=== PATIENT | male | born 1975 | race Caucasian/White ===

== ENCOUNTER → 2018-11-04 | Outpatient (CLI) | payer OTHER ==
[2018-11-04 16:29] LABS: Bacteria Mod /hpf; Squamous Epithelial Cells Few /hpf (Few)
[2018-11-04 16:30] LABS: Amorphous Mod (0-Heavy); Mucus Light (0-Heavy)
[2018-11-04 16:54] LABS: Protein, Urine Random 1613.4 mg/dL (0.0-11.9)
== END | disposition home or self-care (01) ==
LOC: LAB SHORT 16:13 → LAB 16:13
PROVIDERS: Internal Medicine
DX: N17.9 Acute kidney failure, unspecified (principal); R80.9 Proteinuria, unspecified
CPT/HCPCS: 81015; 82570; 84156

== ENCOUNTER → 2018-11-05 | Outpatient (CLI) | payer OTHER ==
[2018-11-05 19:47] LABS: Creatinine Urine 39.8 mg/dL (27.00-270.00)
[2018-11-05 19:56] LABS: Protein, Urine Quantitative 543.9 mg/dL (0.0-11.9)
== END | disposition home or self-care (01) ==
LOC: LAB SHORT 16:30 → LAB 16:30
PROVIDERS: Internal Medicine
DX: N17.9 Acute kidney failure, unspecified (principal); R80.9 Proteinuria, unspecified
CPT/HCPCS: 81050; 82570; 84156

== ENCOUNTER 2018-11-24 09:18 | Day surgery (SDC) | payer OTHER ==
--- NOTE | 2018-11-24 12:42 | NUR ---
PT DISCHARGED FROM IMAGING WITH OUT DIFFICULTY. REMAINED HYPERTENSIVE, BUT PT WILL TAKE HOME BP MEDS
== END 2018-11-24 22:36 | disposition home or self-care (01) ==
LOC: CT 09:18
DX: N04.9 Nephrotic syndrome with unspecified morphologic changes (principal); E78.5 Hyperlipidemia, unspecified; K21.9 Gastro-esophageal reflux disease without esophagitis; F17.210 Nicotine dependence, cigarettes, uncomplicated; E11.22 Type 2 diabetes mellitus with diabetic chronic kidney disease; N18.3 Chronic kidney disease, stage 3 (moderate)
CPT/HCPCS: 50200; 77012; 88329

== ENCOUNTER 2019-05-11 06:40 | Day surgery (SDC) | payer OTHER ==
[~2019-05-11] VITALS: Ht 175.3 cm; Wt 125.0 kg
[2019-05-11] MEDS ORDERED: AMLO10 PO (07:00)
[2019-05-11] MEDS ORDERED: LEVSOD137 PO (07:01)
[2019-05-11] MEDS ORDERED: GLIP5 PO (07:01)
[2019-05-11] MEDS ORDERED: ATOR20 PO (07:02)
[2019-05-11] MEDS ORDERED: TORSE20 PO (07:02)
[2019-05-11] MEDS ORDERED: LISI20 PO (07:02)
[2019-05-11] MEDS ORDERED: METO5 PO (07:03)
[2019-05-11] MEDS ORDERED: OMEP20ER PO (07:03)
--- NOTE | 2019-05-11 10:06 | NUR ---
SUTURE REMOVED FROM PERMACATH SITE NEAR NECKLINE INSTRUCTED BY DR. LAWS. STERI-STRIPS APPLIED OVER SITE AFTER SUTURE REMOVED, NO ACTIVE BLEEDING, OOZING, OR PAIN PER PT. PT ABLE TO GET DRESSED BY HIMSELF. IV REMOVED FROM LEFT HAND, CATH INTACT, PRESSURE DRESSING APPLIED. VSS. PT INSTRUCTED TO [facility] PER DR. LASW. [facility] AND FUTURE CARE, NADN AT TIME OF DISCHARGE. TAKEN OUT TO PRIVATE VEHICLE VIA W/C.
== END 2019-05-11 09:50 | disposition home or self-care (01) ==
LOC: MHTC 06:40
DX: I12.0 Hypertensive chronic kidney disease with stage 5 chronic kidney disease or end stage renal disease (principal); E11.22 Type 2 diabetes mellitus with diabetic chronic kidney disease; N18.6 End stage renal disease; K21.9 Gastro-esophageal reflux disease without esophagitis; E78.5 Hyperlipidemia, unspecified; E55.9 Vitamin D deficiency, unspecified; F17.210 Nicotine dependence, cigarettes, uncomplicated; Z79.899 Other long term (current) drug therapy; Z79.84 Long term (current) use of oral hypoglycemic drugs
CPT/HCPCS: 36558; 76937; 99152; 99153; C1750; C1769; J1644; J2250; J2405; J3010; J7030

== ENCOUNTER → 2019-11-16 | Outpatient (CLI) | payer OTHER ==
[~2019-11-16] MED LIST: AMLO10 PO; ATOR20 PO; GLIP5 PO; LEVSOD137 PO; LISI20 PO; METO5 PO; OMEP20ER PO; TORSE20 PO
[2019-11-16 15:46] LABS: Source, Urine Clean Catch
[2019-11-16 17:04] LABS: Bilirubin, Urine Neg (Neg); Blood, Urine 2+ (Neg); Glucose Qualitative, Urine 2+ (Neg); Ketones, Urine Neg (Neg); Leukocyte Esterase, Urine Neg (Neg); Nitrite, Urine Neg (Neg); Protein, Urine 4+ (Neg); Urobilinogen, Urine NORM (Normal)
[2019-11-16 17:24] LABS: Appearance, Urine Clear (Clear); Color, Urine Yellow (P-Yellow)
[2019-11-16 17:25] LABS: Bacteria Few /hpf; Squamous Epithelial Cells Rare /hpf (Few); Transitional Epithelial Cells Rare /hpf (0-Rare)
== END | disposition home or self-care (01) ==
LOC: LAB SHORT 15:44 → OLS 15:44
PROVIDERS: Internal Medicine
DX: R35.0 Frequency of micturition (principal)
CPT/HCPCS: 81001

== ENCOUNTER 2020-08-15 11:04 | Emergency (ER) | payer OTHER ==
[~2020-08-15] VITALS: Ht 177.8 cm; Wt 81.7 kg
[2020-08-15 11:52] LABS: BASOPHILS ABSOLUTE AUTO 0.05 K/mm3 (0.00-0.23); BASOPHILS PERCENT AUTO 1 % (0-2); EOSINOPHILS ABSOLUTE AUTO 0.22 K/mm3 (0.00-0.68); EOSINOPHILS PERCENT AUTO 3 % (0-6); Hematocrit 36.1 % (37.0-53.0); Hemoglobin 11.5 g/dL (13.5-17.5); IMMATURE GRAN ABSOLUTE AUTO 0.02 K/mm3 (0.00-0.10); IMMATURE GRAN PERCENT AUTO 0 % (0-1); LYMPHOCYTES ABSOLUTE AUTO 1.19 K/mm3 (0.84-5.20); LYMPHOCYTES PERCENT AUTO 14 % (21-46); MONOCYTES ABSOLUTE AUTO 0.64 K/mm3 (0.16-1.47); MONOCYTES PERCENT AUTO 8 % (4-13); Mean Corpuscular HGB 31.5 pg (26.0-34.0); Mean Corpuscular HGB Conc 31.9 g/dL (31.5-36.5); Mean Corpuscular Volume 99 fL (80-100); Mean Platelet Volume 9.9 fL (9.1-12.4); NEUTROPHILS ABSOLUTE AUTO 6.32 K/mm3 (1.96-9.15); NEUTROPHILS PERCENT AUTO 75 % (41-73); Platelet Count 256 K/mm3 (150-400); RDW Standard Deviation 54.5 fL (35.1-46.3); Red Blood Cell Count 3.65 M/mm3 (4.30-5.90); White Blood Cell Count 8.44 K/mm3 (4.00-11.30)
[2020-08-15 12:21] LABS: Magnesium, Blood 3.1 mg/dL (1.6-2.4)
[2020-08-15 12:28] LABS: Alanine Aminotransfer (ALT/SGP 19 U/L (12-78); Albumin, Blood 3.3 g/dL (3.4-5.0); Alk Phos 92 U/L (50-136); Anion Gap 12 mmol/L (6-16); Aspartate Aminotrans (AST/SGOT <3 U/L (12-37); Bilirubin, Total 0.3 mg/dL (0.1-1.0); Blood Urea Nitrogen 79 mg/dL (8-24); Bun/Creatinine Ratio 6.4 (12.0-20.0); CO2, Blood 24 mmol/L (21-32); Calcium, Blood 8.8 mg/dL (8.5-10.1); Chloride, Blood 97 mmol/L (98-108); Globulin, Blood 3.3 g/dL (2.2-4.0); Glomerular Filtration Rate 5 (60-); Glucose, Blood 125 mg/dL (70-99); Potassium, Blood 6.1 mmol/L (3.5-5.5); Sodium, Blood 133 mmol/L (136-145); Total Protein, Blood 6.6 g/dL (6.4-8.2)
[2020-08-15] MEDS ORDERED: HYDRA25 PO (12:29)
[2020-08-15] MEDS ORDERED: ASPI81CH PO (12:29)
[2020-08-15] MEDS ORDERED: FURO40 PO (12:30)
[2020-08-15] MEDS ORDERED: QUET100 PO (12:30)
[2020-08-15] MEDS ORDERED: SEVEC800 PO (12:31)
== END 2020-08-15 12:55 | disposition home or self-care (01) ==
LOC: ER 11:04
PROVIDERS: Emergency Medicine
DX: I95.9 Hypotension, unspecified (principal); E87.5 Hyperkalemia; I10 Essential (primary) hypertension; E03.9 Hypothyroidism, unspecified; K21.9 Gastro-esophageal reflux disease without esophagitis; Z79.899 Other long term (current) drug therapy
CPT/HCPCS: 36415; 51798; 80053; 83735; 85025; 99285-25

== ENCOUNTER 2020-11-17 14:14 | Emergency (ER) | payer OTHER ==
[~2020-11-17] VITALS: Ht 175.3 cm; Wt 81.7 kg
[~2020-11-17 14:14] MED LIST changes: -AMLO10 PO; -ATOR20 PO; -LEVSOD137 PO; -LISI20 PO
[2020-11-17 14:54] LABS: BASOPHILS ABSOLUTE AUTO 0.03 K/mm3 (0.00-0.23); BASOPHILS PERCENT AUTO 0 % (0-2); EOSINOPHILS ABSOLUTE AUTO 0.17 K/mm3 (0.00-0.68); EOSINOPHILS PERCENT AUTO 2 % (0-6); Hematocrit 32.8 % (37.0-53.0); Hemoglobin 10.8 g/dL (13.5-17.5); IMMATURE GRAN ABSOLUTE AUTO 0.03 K/mm3 (0.00-0.10); IMMATURE GRAN PERCENT AUTO 0 % (0-1); LYMPHOCYTES ABSOLUTE AUTO 1.66 K/mm3 (0.84-5.20); LYMPHOCYTES PERCENT AUTO 17 % (21-46); MONOCYTES ABSOLUTE AUTO 0.85 K/mm3 (0.16-1.47); MONOCYTES PERCENT AUTO 9 % (4-13); Mean Corpuscular HGB 33.5 pg (26.0-34.0); Mean Corpuscular HGB Conc 32.9 g/dL (31.5-36.5); Mean Corpuscular Volume 102 fL (80-100); Mean Platelet Volume 9.3 fL (9.1-12.4); NEUTROPHILS ABSOLUTE AUTO 7.23 K/mm3 (1.96-9.15); NEUTROPHILS PERCENT AUTO 73 % (41-73); Platelet Count 257 K/mm3 (150-400); RDW Coefficient Variation 14.5 % (11.7-14.2); RDW Standard Deviation 53.4 fL (35.1-46.3); Red Blood Cell Count 3.22 M/mm3 (4.30-5.90); White Blood Cell Count 9.97 K/mm3 (4.00-11.30)
[2020-11-17 15:26] LABS: Albumin, Blood 3.2 g/dL (3.4-5.0); Albumin/Globulin Ratio 0.8 (0.8-1.8); Bilirubin, Total 0.3 mg/dL (0.1-1.0); Bun/Creatinine Ratio 4.7 (12.0-20.0); Calcium, Blood 8.7 mg/dL (8.5-10.1); Creatinine, Blood 9.11 mg/dL (0.60-1.20); Globulin, Blood 3.9 g/dL (2.2-4.0); Potassium, Blood 5.5 mmol/L (3.5-5.5); Total Protein, Blood 7.1 g/dL (6.4-8.2)
[2020-11-17 15:31] LABS: Prothrombin Time Results 10.8 Sec (9.7-11.5)
[2020-11-18 01:24] LABS: SARS-Cov-2 (COVID-19) PCR, MMC NEGATIVE (NEGATIVE)
== END 2020-11-18 00:30 | disposition home or self-care (01) ==
LOC: ER 14:14
PROVIDERS: Emergency Medicine; Physician Assistant; Student in an Organized Health Care Education/Training Program
DX: T82.43XA Leakage of vascular dialysis catheter, initial encounter (principal); I10 Essential (primary) hypertension; E78.5 Hyperlipidemia, unspecified; E03.9 Hypothyroidism, unspecified; K21.9 Gastro-esophageal reflux disease without esophagitis; F17.210 Nicotine dependence, cigarettes, uncomplicated; Z20.822 Contact with and (suspected) exposure to COVID-19; Z79.899 Other long term (current) drug therapy; Z79.82 Long term (current) use of aspirin
CPT/HCPCS: 36415; 80053; 85025; 85610; 85730; 93005; 93010; 99284-25; A9270; J1642; U0004

== ENCOUNTER 2020-11-20 16:00 | Observation (INO) | payer OTHER ==
[~2020-11-20] VITALS: Ht 175.3 cm; Wt 83.9 kg
[2020-11-20 16:43] LABS: BASOPHILS ABSOLUTE AUTO 0.06 K/mm3 (0.00-0.23); BASOPHILS PERCENT AUTO 1 % (0-2); EOSINOPHILS ABSOLUTE AUTO 0.23 K/mm3 (0.00-0.68); EOSINOPHILS PERCENT AUTO 3 % (0-6); Hematocrit 31.3 % (37.0-53.0); Hemoglobin 10.4 g/dL (13.5-17.5); IMMATURE GRAN ABSOLUTE AUTO 0.03 K/mm3 (0.00-0.10); IMMATURE GRAN PERCENT AUTO 0 % (0-1); LYMPHOCYTES ABSOLUTE AUTO 1.38 K/mm3 (0.84-5.20); LYMPHOCYTES PERCENT AUTO 18 % (21-46); MONOCYTES ABSOLUTE AUTO 0.47 K/mm3 (0.16-1.47); MONOCYTES PERCENT AUTO 6 % (4-13); Mean Corpuscular HGB 33.1 pg (26.0-34.0); Mean Corpuscular HGB Conc 33.2 g/dL (31.5-36.5); Mean Corpuscular Volume 100 fL (80-100); Mean Platelet Volume 9.4 fL (9.1-12.4); NEUTROPHILS ABSOLUTE AUTO 5.72 K/mm3 (1.96-9.15); NEUTROPHILS PERCENT AUTO 72 % (41-73); Platelet Count 236 K/mm3 (150-400); RDW Standard Deviation 51.1 fL (35.1-46.3); Red Blood Cell Count 3.14 M/mm3 (4.30-5.90); White Blood Cell Count 7.89 K/mm3 (4.00-11.30)
[2020-11-20 17:14] LABS: Albumin, Blood 3.1 g/dL (3.4-5.0); Albumin/Globulin Ratio 0.8 (0.8-1.8); Bilirubin, Total 0.4 mg/dL (0.1-1.0); Bun/Creatinine Ratio 4.9 (12.0-20.0); Calcium, Blood 8.1 mg/dL (8.5-10.1); Creatinine, Blood 15.9 mg/dL (0.60-1.20); Globulin, Blood 3.7 g/dL (2.2-4.0); Potassium, Blood 6.4 mmol/L (3.5-5.5); Total Protein, Blood 6.8 g/dL (6.4-8.2)
[2020-11-20 17:51] LABS: Prothrombin Time Results 11.5 Sec (9.7-11.5)
[2020-11-20] MEDS ORDERED: AMLO10 PO ×2 (18:18)
[2020-11-20] MEDS ORDERED: EUTHYROX125 MCG PO ×2 (18:19)
[2020-11-20] MEDS ORDERED: ATOR20 PO ×2 (18:19)
[2020-11-20] MEDS ORDERED: LISI20 PO ×2 (18:19)
[2020-11-20] MEDS ORDERED: Aspir 8181 MG PO ×2 (18:20)
[2020-11-20] MEDS ORDERED: HYDRA25 PO ×2 (18:20)
[2020-11-20] MEDS ORDERED: QUET100 PO ×2 (18:21)
[2020-11-20] MEDS ORDERED: FURO40 PO ×2 (18:21)
[2020-11-20] MEDS ORDERED: SEVEC800 PO ×2 (18:22)
[2020-11-20] MEDS ORDERED: SEVE800 PO ×2 (18:27)
[2020-11-20] MEDS ORDERED: QUETIAPINE FUMA50 M2 PO ×2 (18:28)
[2020-11-20] MEDS ORDERED: Calcium Carbon500 MG PO ×2 (18:28)
[2020-11-20] MEDS ORDERED: METO100ER PO ×2 (18:29)
[2020-11-20] MEDS ORDERED: RENAL VITAMIN0.8 MG PO ×2 (18:30)
[2020-11-20] MEDS ORDERED: Hair, Skin & N1 EACH PO ×2 (18:31)
--- NOTE | 2020-11-21 03:08 | NUR ---
DIALYSIS WHILE DOING A DIALYSIS TX ON PT TO DECREASE HIS K+, THE R/O MACHINE SHUT DOWN. IT HAPPENED 4 CONSECUTVELY. MAKING THE FRESENIUS ALARM "NO WATER". RETURNED BLOOD. HAS BASIC METABOLIC PANEL ORDERED THIS AM.
--- NOTE | 2020-11-21 05:12 | NUR ---
2300: Pt call nurse in room reporting his femostop came off as pt was turning. This nurse asses and the cath site is nolonger bleeding. Charge nurse notified. Dressed site with 4x4s and stayed with pt for 15 minutes, no bleeding observed. Femostop left off and educated pt to notify nurse of any signs of bleeing. 0400: Pt got dialysis tonight. Pt is resting well at this time. No signs of bleeding. Pt A&Ox4. Pt conversing with himself. Denies hallucinations. Pt stable at this time. Bed in lowest position. Call light within reach.
[2020-11-21 06:36] LABS: Bun/Creatinine Ratio 4.8 (12.0-20.0); Creatinine, Blood 12.8 mg/dL (0.60-1.20); Potassium, Blood 4.2 mmol/L (3.5-5.5)
[2020-11-21] MEDS ORDERED: ACET325 PO ×2 (09:34)
[2020-11-21] MEDS ORDERED: ONDA4ODT MM ×2 (09:34)
--- NOTE | 2020-11-21 11:11 | NUR ---
PATIENT DISCHARGED TO HOME ACCOMPANIED BY HIS MOTHER. VERBALIZED UNDERSTANDING OF D/C INSTRUCTIONS, BUT SEEMED IN A HURRY TO LEAVE. IV SALINE LOCK REMOVED WITHOUT INCIDENT. OFF UNIT VIA W/C AT 1015. NO PERSONAL BELONGINGS LEFT BEHIND.
== END 2020-11-21 10:08 | disposition home or self-care (01) ==
LOC: ER 16:00 → MEDS 16:01
PROVIDERS: Physician Assistant; ADMIT Internal Medicine
DX: T82.838A Hemorrhage due to vascular prosthetic devices, implants and grafts, initial encounter (principal); E87.5 Hyperkalemia; E78.5 Hyperlipidemia, unspecified; E03.9 Hypothyroidism, unspecified; F17.210 Nicotine dependence, cigarettes, uncomplicated; R79.1 Abnormal coagulation profile; K21.9 Gastro-esophageal reflux disease without esophagitis; I45.10 Unspecified right bundle-branch block; F32.9 Major depressive disorder, single episode, unspecified; I12.0 Hypertensive chronic kidney disease with stage 5 chronic kidney disease or end stage renal disease; N18.6 End stage renal disease; Z99.2 Dependence on renal dialysis; Y84.1 Kidney dialysis as the cause of abnormal reaction of the patient, or of later complication, without mention of misadventure at the time of the procedure
CPT/HCPCS: 36415; 80048; 80053; 82947; 85025; 85610; 85730; 86850; 86900; 86901; 93005; 93010; 99284-25; J1170

== ENCOUNTER 2021-02-07 13:26 | Day surgery (SDC) | payer OTHER ==
[~2021-02-07] VITALS: Ht 175.3 cm; Wt 86.0 kg
[~2021-02-07 13:26] MED LIST changes: +ACET325 PO; +AMLO10 PO; +ATOR20 PO; +Aspir 8181 MG PO; +Calcium Carbon500 MG PO; +EUTHYROX125 MCG PO; +FURO40 PO; +HYDRA25 PO; +Hair, Skin & N1 EACH PO; +LISI20 PO; +METO100ER PO; +METO50ER PO; +ONDA4ODT MM; +QUET100 PO; +QUETIAPINE FUMA50 M2 PO; +RENAL VITAMIN0.8 MG PO; +SEVE800 PO; +SEVEC800 PO
--- NOTE | 2021-02-07 14:22 | NUR ---
PT DENIES CP
--- NOTE | 2021-02-07 16:43 | NUR ---
PT TO RECOVERY ROOM POST PROCEDURE. PT AWAKE AND CONVERSING APPROPRIATELY; DENIES PAIN POST PROCEDURE. MONITOR SR 70'S, B/P 134/86, AFEBRILE, SPO2 90% RA-PLACED ON 2L NC. R CHEST PERMCATH SITE NO SWELLING/HEMATOMA, SLOW OOZE FROM SITE, PRESSURE DRSG APPLIED AND MANUAL PRESSURE BEING HELD.
--- NOTE | 2021-02-07 17:38 | NUR ---
PRESSURE HELD BY MUPTIPLE STAFF ON PATIENT. CALLED DR. LAWS.AFTER PROTAMINE 5 MG IV GIVEN ORDER BY DR. LAWS. ATTEMPED PRESSURE DRESSING, REMOVED, MANUAL PRESSURE APPLIED, DERMABOND AND DANNY APPLIED AND SOAKED THROUGH, RECALLED DR. LAWS. HE IS DUE TO COME TO THE BEDSIDE. MOTHER AT THE BEDSIDE AND UPDATED EVENTS OCCUR.
--- NOTE | 2021-02-07 17:44 | NUR ---
REPORT TO VANDANA VARGAS; ALL QUESTIONS ANSWERED.
--- NOTE | 2021-02-07 18:09 | NUR ---
1800 DR. LAWS AT THE BEDSIDE, STERILE FIELD SET UP, LIDO WITH EPI INJECTED AND EXTRA SUTURE APPLIED TO THE PD INSERTION SITE. BLEEDING CEASED AT THIS POINT. DR. LAWS SPOKE WITH THE MOTHER AFTER THE PROCEDURE AND ALL QUESTIONS ANSWERED. VSS. SITE CLEANED AND DRESSED. MONITORED FOR ANY FURTHER BLEEDING.
--- NOTE | 2021-02-07 18:21 | NUR ---
1820 CATHY SITTING UP IN THE RECLINER EATING HIS DINNER TRAY. O2 OFF ROOM AIR SAT 98%
--- NOTE | 2021-02-07 18:49 | NUR ---
DRESSING CHANGED AND PRESSURE DRESSING APPLIED. PATIENT OFF MONITOR AND DRESSED. PIV REMOVED, CATHETER TIP INTACT ANF PRESSURE DRESSING APPLIED TO THE LEFT AC ALSO. RIGHT ARM PLACED IN A SLING TO REMIND PATIENT NOT LIFT ARM ABOVE HEAD AND KEEP DRESSURE DRESSING INTACT.
--- NOTE | 2021-02-07 19:00 | NUR ---
PATIENT DISCAHRGE HOME VIA WHEELCHAIR WITH MOM DRIVING. MOM WILL STAY WITH PATIENT TONIGHT DUE TO BLEEDIN RISK, HE HAS DIALYSIS TOMORROW AND GOING TO DR. WOODSON OFFICE TO HAVE STITCHES REMOVED FOLLOWING DIALYSIS ON FRIDAY.
[2021-02-08] MEDS ORDERED: ACET500 (15:59)
== END 2021-02-07 19:00 | disposition home or self-care (01) ==
LOC: MHTC 13:26
DX: T82.49XA Other complication of vascular dialysis catheter, initial encounter (principal); I12.0 Hypertensive chronic kidney disease with stage 5 chronic kidney disease or end stage renal disease; N18.6 End stage renal disease; E11.22 Type 2 diabetes mellitus with diabetic chronic kidney disease; Z01.810 Encounter for preprocedural cardiovascular examination; E78.5 Hyperlipidemia, unspecified; K21.9 Gastro-esophageal reflux disease without esophagitis; E03.9 Hypothyroidism, unspecified; Z79.899 Other long term (current) drug therapy
CPT/HCPCS: 99152; 99153; C1725; C1750; C1769; J1644; J2250; J2720; J3010; J7040; Q9967

== ENCOUNTER 2021-02-07 19:29 | Emergency (ER) | payer OTHER ==
[~2021-02-07] VITALS: Ht 175.3 cm; Wt 85.7 kg
[2021-02-08] MEDS ORDERED: ACET500 (15:59)
== END 2021-02-07 22:02 | disposition home or self-care (01) ==
LOC: ER 19:29
DX: T82.838A Hemorrhage due to vascular prosthetic devices, implants and grafts, initial encounter (principal); E78.5 Hyperlipidemia, unspecified; I10 Essential (primary) hypertension; E03.9 Hypothyroidism, unspecified; K21.9 Gastro-esophageal reflux disease without esophagitis; F17.210 Nicotine dependence, cigarettes, uncomplicated; Z79.899 Other long term (current) drug therapy
CPT/HCPCS: 71046; 99284-25

== ENCOUNTER 2021-02-07 23:51 | Emergency (ER) | payer OTHER ==
[~2021-02-07] VITALS: Ht 175.3 cm; Wt 85.7 kg
[2021-02-08 01:09] LABS: BASOPHILS ABSOLUTE AUTO 0.05 K/mm3 (0.00-0.23); BASOPHILS PERCENT AUTO 1 % (0-2); EOSINOPHILS ABSOLUTE AUTO 0.28 K/mm3 (0.00-0.68); EOSINOPHILS PERCENT AUTO 3 % (0-6); Hematocrit 33.1 % (37.0-53.0); Hemoglobin 10.8 g/dL (13.5-17.5); IMMATURE GRAN ABSOLUTE AUTO 0.04 K/mm3 (0.00-0.10); IMMATURE GRAN PERCENT AUTO 0 % (0-1); LYMPHOCYTES ABSOLUTE AUTO 2.28 K/mm3 (0.84-5.20); LYMPHOCYTES PERCENT AUTO 24 % (21-46); MONOCYTES ABSOLUTE AUTO 0.97 K/mm3 (0.16-1.47); MONOCYTES PERCENT AUTO 10 % (4-13); Mean Corpuscular HGB 32.2 pg (26.0-34.0); Mean Corpuscular HGB Conc 32.6 g/dL (31.5-36.5); Mean Corpuscular Volume 99 fL (80-100); Mean Platelet Volume 9.7 fL (9.1-12.4); NEUTROPHILS ABSOLUTE AUTO 5.93 K/mm3 (1.96-9.15); NEUTROPHILS PERCENT AUTO 62 % (41-73); Platelet Count 260 K/mm3 (150-400); RDW Coefficient Variation 14.3 % (11.7-14.2); RDW Standard Deviation 51.4 fL (35.1-46.3); Red Blood Cell Count 3.35 M/mm3 (4.30-5.90); White Blood Cell Count 9.55 K/mm3 (4.00-11.30)
[2021-02-08] MEDS ORDERED: ACET500 (15:59)
== END 2021-02-08 04:06 | disposition home or self-care (01) ==
LOC: ER 23:51
PROVIDERS: Student in an Organized Health Care Education/Training Program
DX: T82.838A Hemorrhage due to vascular prosthetic devices, implants and grafts, initial encounter (principal); E78.5 Hyperlipidemia, unspecified; I10 Essential (primary) hypertension; E03.9 Hypothyroidism, unspecified; K21.9 Gastro-esophageal reflux disease without esophagitis; F17.210 Nicotine dependence, cigarettes, uncomplicated; Z79.899 Other long term (current) drug therapy
CPT/HCPCS: 36415; 85025; 96374; 96375; 99284-25; J2270; J2405

== ENCOUNTER 2021-09-26 10:04 | Day surgery (SDC) | payer OTHER ==
[~2021-09-26] VITALS: Ht 177.8 cm; Wt 84.5 kg
[~2021-09-26 10:04] MED LIST changes: +ACET500; +Fosrenol750 MG PO
[2021-09-26] MEDS ORDERED: RISP1 PO (10:27)
[2021-09-26] MEDS ORDERED: VELTASSA PO (10:31)
--- NOTE | 2021-09-26 12:45 | NUR ---
PT BACK TO RECOVERY ROOM VIA BED AFTER FISTULAGRAM. PEPSI GIVEN PER REQUEST. AWAKE AND ALERT, MOTHER AT BEDSIDE
--- NOTE | 2021-09-26 13:24 | NUR ---
1200 PATIENT RETURNED FROM THE CATHLAB. PLACED ON THE MONITOR. VVS. NO PAIN NOTED. MOTHER AT THE BEDSIDE. PURSE STRING SUTURES NOTED TO THE FISTULA SITE IN THE RIGHT ARM. CALL LIGHT IN REACH.
--- NOTE | 2021-09-26 14:00 | NUR ---
MD AWARE OF INCREASED BP. PT'S MOTHER STATES THIS HAS BEEN ONGOING AND THEY HAVE BEEN WORKING ON MEDICATIONS AND DOSES WITH GALVANIZER ZINC.
--- NOTE | 2021-09-26 14:30 | NUR ---
PURSE STRING SUTURES TO RIGHT FOREARM FISTULA SITES HAVE BEEN REMOVED, NO BLEEDING OR SWELLING NOTED AT EITHER SITE. PT AND MOTHER VERBALIZED UNDERSTANDING OF DC INSTRUCTIONS AND FOLLOW UP INFO. IV DC'D, CATH INTACT. PT OUT TO CAR VIA WHEELCHAIR. WILL HAVE DIALYSIS TOMORROW SCHEDULED.
== END 2021-09-26 14:30 | disposition home or self-care (01) ==
LOC: MHTC 10:04
DX: T82.858A Stenosis of other vascular prosthetic devices, implants and grafts, initial encounter (principal); I12.0 Hypertensive chronic kidney disease with stage 5 chronic kidney disease or end stage renal disease; N18.6 End stage renal disease; E11.22 Type 2 diabetes mellitus with diabetic chronic kidney disease; K21.9 Gastro-esophageal reflux disease without esophagitis; E78.5 Hyperlipidemia, unspecified; E03.9 Hypothyroidism, unspecified; Z79.82 Long term (current) use of aspirin; Z79.899 Other long term (current) drug therapy
CPT/HCPCS: 76937; 99152; 99153; A9270; C1725; C1769; C1887; C1894; J1644; J2250; J3010; J7030; Q9967

== ENCOUNTER 2024-02-07 11:28 | Emergency (ER) | payer OTHER ==
[~2024-02-07] VITALS: Ht 167.6 cm; Wt 72.6 kg
[~2024-02-07 11:28] MED LIST changes: +Hydroxyzine HCl50 MG PO; +RISP1 PO; +VELTASSA PO
[2024-02-07 11:39] VITALS: BP 164/85
== END 2024-02-07 16:56 | disposition home or self-care (01) ==
LOC: ER 11:28
DX: S82.62XA Displaced fracture of lateral malleolus of left fibula, initial encounter for closed fracture (principal); F17.210 Nicotine dependence, cigarettes, uncomplicated; W18.30XA Fall on same level, unspecified, initial encounter
CPT/HCPCS: 29515; 73562-LT; 73610; 73630; 99283-25

== ENCOUNTER 2025-02-23 17:41 | Emergency (ER) | payer MEDICARE, BC | END 2025-02-23 19:00 | disposition left against medical advice (07) | LOC: ER 17:41 | DX: R20.0 Anesthesia of skin (principal); Z53.21 Procedure and treatment not carried out due to patient leaving prior to being seen by health care provider ==